=== PATIENT | female | born 1985 | race Hispanic/Latino ===

== ENCOUNTER 2017-12-10 22:03 | Emergency (ER) | payer OTHER, MEDICAID ==
[2017-12-10] MEDS: NORCO 5/325MG TABLET (BULK FOR ED) PO (22:37)
[2017-12-10] MEDS: AUGMENTIN 500 MG TAB PO (22:48)
== END 2017-12-10 22:50 | disposition home or self-care (01) ==
LOC: M ED 22:03
DX: K01.1 Impacted teeth (principal); K08.89 Other specified disorders of teeth and supporting structures; F17.200 Nicotine dependence, unspecified, uncomplicated
CPT/HCPCS: 99282

== ENCOUNTER 2017-12-12 20:10 | Emergency (ER) | payer OTHER | END 2017-12-13 00:16 | disposition left against medical advice (07) | LOC: M ED 20:10 | DX: R11.2 Nausea with vomiting, unspecified (principal); R19.7 Diarrhea, unspecified; Z53.21 Procedure and treatment not carried out due to patient leaving prior to being seen by health care provider ==

== ENCOUNTER 2018-07-02 09:46 | Emergency (ER) | payer OTHER ==
[2018-07-02] MEDS: ONDANSETRON 4 MG ORAL DISINTEGRATING TAB (Q0162 PER 1MG) PO (10:36)
[2018-07-02] MEDS: NORCO, ANEXSIA 5/325MG TABLET (HYDROcodone/ACETAMINOPHEN) PO (10:49)
== END 2018-07-02 12:41 | disposition home or self-care (01) ==
LOC: M ED 09:46
DX: S50.02XA Contusion of left elbow, initial encounter (principal); W10.8XXA Fall (on) (from) other stairs and steps, initial encounter; Y92.89 Other specified places as the place of occurrence of the external cause; R51 Headache; R11.0 Nausea; F41.9 Anxiety disorder, unspecified; F17.200 Nicotine dependence, unspecified, uncomplicated
CPT/HCPCS: Q0162

== ENCOUNTER 2018-07-05 09:04 | Emergency (ER) | payer OTHER | END 2018-07-05 09:42 | disposition home or self-care (01) | LOC: M ED 09:04 | DX: S50.02XA Contusion of left elbow, initial encounter (principal); W01.0XXA Fall on same level from slipping, tripping and stumbling without subsequent striking against object, initial encounter; Y92.89 Other specified places as the place of occurrence of the external cause; Y99.0 Civilian activity done for income or pay; F17.210 Nicotine dependence, cigarettes, uncomplicated | CPT/HCPCS: 99282 ==

== ENCOUNTER → 2018-07-26 | Outpatient (REF) | payer OTHER ==
[2018-07-26 18:27] LABS: ALBUMIN 3.8 GM/DL (3.2-5.2); ALBUMIN/GLOBULIN RATIO 1.12 (1.00-1.93); ALKALINE PHOSPHATASE 77 U/L (45-117); ALT/SGPT 21 U/L (12-78); AST/SGOT 14 U/L (7-37); BILIRUBIN,DIRECT < 0.1 MG/DL (0.0-0.2); BILIRUBIN,TOTAL 0.4 MG/DL (0.2-1.0); TOTAL PROTEIN 7.2 GM/DL (6.4-8.2)
[2018-07-26 18:34] LABS: TOTAL 25(OH) VITAMIN D 20.8 NG/ML (30.0-100.0)
== END ==
LOC: M SFHCPLAZ 14:18
DX: B35.1 Tinea unguium (principal)
CPT/HCPCS: 80076

== ENCOUNTER → 2018-09-27 | Outpatient (REF) | payer OTHER ==
[~2018-09-27] MED LIST: ADVIL PM PO; AUGM500T34 PO; IBUP-1114 PO; NORCOTAB PO; ZOFR4TAB14 PO
[2018-09-27 12:14] LABS: ALBUMIN 3.6 GM/DL (3.2-5.2); BILIRUBIN,DIRECT 0.1 MG/DL (0.0-0.2); BILIRUBIN,TOTAL 0.4 MG/DL (0.2-1.0)
== END ==
LOC: M SFHCPLAZ 08:00
PROVIDERS: ATTEND Nurse Practitioner Family
DX: B35.1 Tinea unguium (principal)

== ENCOUNTER → 2018-11-06 | Outpatient (REF) | payer OTHER ==
[2018-11-06 10:57] LABS: ALBUMIN 3.7 GM/DL (3.2-5.2); ALT/SGPT 21 U/L (12-78); BILIRUBIN,TOTAL 0.5 MG/DL (0.2-1.0); BLOOD UREA NITROGEN 10 MG/DL (7-18); CALCIUM LEVEL 8.5 MG/DL (8.5-10.1); CARBON DIOXIDE LEVEL 27 MEQ/L (21-32); CHLORIDE LEVEL 109 MEQ/L (98-107); CHOLESTEROL LEVEL 235 MG/DL (<200); CHOLESTEROL RISK RATIO 5.222 (<5); CREATININE FOR GFR 0.64 MG/DL (0.55-1.30); FREE T4 1.02 NG/DL (0.76-1.46); GLOMERULAR FILTRATION RATE > 60.0 (>60); GLUCOSE, FASTING 94 MG/DL (70-100); HDL CHOLESTEROL 45 MG/DL (>40); LDL CHOLESTEROL 178 MG/DL (<100); NON-HDL-C 190 MG/DL; POTASSIUM SERUM 4.5 MEQ/L (3.5-5.1); SODIUM LEVEL 140 MEQ/L (136-145); TOTAL 25(OH) VITAMIN D 17.2 NG/ML (30.0-100.0); TOTAL PROTEIN 7.2 GM/DL (6.4-8.2); TRIGLYCERIDES LEVEL 60 MG/DL (<150)
== END ==
LOC: M SFHCPLAZ 07:23
PROVIDERS: ATTEND Nurse Practitioner Family
DX: B35.1 Tinea unguium (principal); E66.9 Obesity, unspecified; R73.09 Other abnormal glucose; E78.2 Mixed hyperlipidemia; E55.9 Vitamin D deficiency, unspecified

== ENCOUNTER 2019-03-02 20:49 | Emergency (ER) | payer OTHER ==
[~2019-03-02] VITALS: Ht 167.6 cm; Wt 90.2 kg
[~2019-03-02 20:49] MED LIST changes: +HYDR-3715 PO; -NORCOTAB PO
[2019-03-02] MEDS ORDERED: NS 1,000 ML IV ONE (22:45)
[2019-03-02] MEDS ORDERED: ONDANSETRON 4MG/2ML VIAL (J2405) IV ONE (23:15)
[2019-03-02] MEDS ORDERED: KETOROLAC 30 MG/ML VIAL (J1885) IV ONE (23:15)
[2019-03-03] MEDS ORDERED: KETO10TAB PO (00:16)
[2019-03-03 00:38] VITALS: BP 108/67
== END 2019-03-03 00:40 | disposition home or self-care (01) ==
LOC: M ED 20:49
DX: G43.909 Migraine, unspecified, not intractable, without status migrainosus (principal)
CPT/HCPCS: 96374; 96375; 99284; J1885; J2405

== ENCOUNTER 2020-11-12 07:45 | Emergency (ER) | payer OTHER ==
[~2020-11-12] VITALS: Ht 170.2 cm; Wt 88.7 kg
[~2020-11-12 07:45] MED LIST changes: +KETO10TAB PO
[2020-11-12] MEDS ORDERED: ADVI200T17 PO (07:53)
[2020-11-12 08:53] LABS: HEMATOCRIT 42.2 % (36.0-47.0); HEMOGLOBIN 13.8 g/dl (12.0-15.5); MEAN CORPUSCULAR HEMOGLOBIN 29.8 pg (27.0-33.0); MEAN CORPUSCULAR HGB CONC 32.7 g/dl (32.0-36.5); MEAN CORPUSCULAR VOLUME 91.1 fl (80.0-96.0); PLATELET COUNT, AUTOMATED 296 10^3/uL (150-450); RED BLOOD COUNT 4.63 10^6/uL (4.00-5.40)
[2020-11-12 09:22] LABS: AMPHETAMINES LEVEL URINE NEGATIVE (NEGATIVE); BARBITURATES URINE NEGATIVE (NEGATIVE); BENZODIAZEPINES URINE NEGATIVE (NEGATIVE); CANNABINOIDS URINE NEGATIVE (NEGATIVE); COCAINE METABOLITE URINE NEGATIVE (NEGATIVE); METHADONE URINE NEGATIVE (NEGATIVE); OPIATES URINE NEGATIVE (NEGATIVE); PHENCYCLIDINE URINE NEGATIVE (NEGATIVE)
[2020-11-12 09:29] LABS: HCG, SERUM QUALITATIVE NEGATIVE (NEGATIVE)
[2020-11-12 09:34] LABS: ACETAMINOPHEN LEVEL < 2.0 UG/ML (10.0-30.0); ALBUMIN 3.7 GM/DL (3.2-5.2); ALT/SGPT 15 U/L (12-78); BILIRUBIN,DIRECT 0.1 MG/DL (0.0-0.2); BILIRUBIN,TOTAL 0.5 MG/DL (0.2-1.0); BLOOD UREA NITROGEN 12 MG/DL (7-18); CALCIUM LEVEL 8.7 MG/DL (8.5-10.1); CARBON DIOXIDE LEVEL 25 MEQ/L (21-32); CHLORIDE LEVEL 110 MEQ/L (98-107); CREATININE FOR GFR 0.65 MG/DL (0.55-1.30); ETHYL ALCOHOL (ETHANOL) < 0.003 % (0.000-0.010); GLOMERULAR FILTRATION RATE > 60.0 (>60); GLUCOSE, FASTING 105 MG/DL (70-100); POTASSIUM SERUM 4.1 MEQ/L (3.5-5.1); SALICYLATE LEVEL < 1.7 MG/DL (5.0-30.0); SODIUM LEVEL 140 MEQ/L (136-145); THYROID STIMULATING HORMONE 0.622 uIU/ML (0.358-3.740); TOTAL PROTEIN 7.4 GM/DL (6.4-8.2)
[2020-11-12 16:24] VITALS: BP 135/78
== END 2020-11-12 16:26 | disposition home or self-care (01) ==
LOC: M ED 07:45
DX: F41.9 Anxiety disorder, unspecified (principal); F33.9 Major depressive disorder, recurrent, unspecified

== ENCOUNTER → 2020-12-30 | Outpatient (REF) ==
[~2020-12-30] MED LIST changes: +ADVI200T17 PO
== END ==
LOC: M LAB 07:21
PROVIDERS: ATTEND Nurse Practitioner Adult Health
DX: Z02.89 Encounter for other administrative examinations (principal)

== ENCOUNTER → 2021-08-18 | Outpatient (REF) | LOC: M EMP 10:48 | PROVIDERS: ATTEND Family Medicine | DX: Z20.822 Contact with and (suspected) exposure to COVID-19 (principal) ==

== ENCOUNTER → 2021-08-22 | Outpatient (REF) ==
[2021-08-22 13:14] LABS: RSV AMPLIFICATION NEGATIVE (NEGATIVE)
== END ==
LOC: M EMP 11:23
PROVIDERS: ATTEND Family Medicine
DX: Z20.822 Contact with and (suspected) exposure to COVID-19 (principal)

== ENCOUNTER → 2021-08-30 | Outpatient (CLI) | payer OTHER | LOC: M RAD 13:22 | PROVIDERS: ATTEND Physician Assistant Medical | DX: R05.9 Cough, unspecified (principal) ==

== ENCOUNTER 2021-09-02 17:37 | Emergency (ER) | payer OTHER ==
[~2021-09-02] VITALS: Ht 167.6 cm; Wt 80.0 kg
[2021-09-02] MEDS ORDERED: ALBU8.5H (17:49)
[2021-09-02] MEDS ORDERED: MIRE1IUD IU (17:50)
[2021-09-02 18:48] LABS: BASO # 0.1 10^3/uL (0.0-0.2); BASO % 0.5 % (0.0-1.0); EOS # 0.2 10^3/uL (0.0-0.5); EOS % 0.9 % (0.0-3.0); HEMATOCRIT 40.4 % (36.0-47.0); HEMOGLOBIN 13.5 g/dl (12.0-15.5); LYMPH # 5.5 10^3/uL (1.5-5.0); MEAN CORPUSCULAR HEMOGLOBIN 30.2 pg (27.0-33.0); MEAN CORPUSCULAR HGB CONC 33.4 g/dl (32.0-36.5); MEAN CORPUSCULAR VOLUME 90.4 fl (80.0-96.0); MONO # 1.1 10^3/uL (0.0-0.8); MONO % 5.7 % (2.0-8.0); NEUTROPHILS # 12.6 10^3/uL (1.5-8.5); NEUTROPHILS % 64.4 % (36.0-66.0); PLATELET COUNT, AUTOMATED 284 10^3/uL (150-450); RED BLOOD COUNT 4.47 10^6/uL (4.00-5.40); WHITE BLOOD COUNT 19.5 10^3/uL (4.0-10.0)
[2021-09-02 19:20] LABS: CK-MB VALUE MASS 1.4 NG/ML (<3.6); MB/CK RELATIVE INDEX 1.16 (< OR =4)
[2021-09-02 19:27] LABS: ALBUMIN 3.8 GM/DL (3.2-5.2); ALT/SGPT 24 U/L (12-78); BILIRUBIN,DIRECT 0.1 MG/DL (0.0-0.2); BILIRUBIN,TOTAL 0.5 MG/DL (0.2-1.0); BLOOD UREA NITROGEN 11 MG/DL (7-18); CALCIUM LEVEL 9.3 MG/DL (8.5-10.1); CARBON DIOXIDE LEVEL 25 MEQ/L (21-32); CHLORIDE LEVEL 107 MEQ/L (98-107); CREATININE FOR GFR 0.67 MG/DL (0.55-1.30); FREE T4 1.26 NG/DL (0.76-1.46); GLOMERULAR FILTRATION RATE > 60.0 (>60); GLUCOSE, FASTING 96 MG/DL (70-100); LIPASE 109 U/L (73-393); MAGNESIUM LEVEL 2.2 MG/DL (1.8-2.4); PHOSPHORUS LEVEL 2.5 MG/DL (2.5-4.9); POTASSIUM SERUM 3.5 MEQ/L (3.5-5.1); SODIUM LEVEL 137 MEQ/L (136-145); THYROID STIMULATING HORMONE 0.916 uIU/ML (0.358-3.740); TOTAL PROTEIN 7.5 GM/DL (6.4-8.2)
[2021-09-02 20:30] VITALS: BP 112/68
[2021-09-08] MEDS ORDERED: DOXY-350 PO (03:32)
[2021-09-08] MEDS ORDERED: AZIT500T5 PO (03:32)
== END 2021-09-02 21:20 | disposition home or self-care (01) ==
LOC: M ED 17:37
DX: R00.2 Palpitations (principal); R94.01 Abnormal electroencephalogram [EEG]; F41.9 Anxiety disorder, unspecified; F17.200 Nicotine dependence, unspecified, uncomplicated

== ENCOUNTER → 2021-09-29 | Outpatient (CLI) | payer OTHER ==
[~2021-09-29] MED LIST changes: +ALBU8.5H; +AZIT500T5 PO; +DOXY-350 PO; +MIRE1IUD IU
== END ==
LOC: M RAD 09:22
PROVIDERS: ATTEND Family Medicine
DX: J18.9 Pneumonia, unspecified organism (principal)

== ENCOUNTER → 2022-03-22 | Outpatient (CLI) | payer OTHER ==
[2022-03-22 10:50] LABS: MEAN CORPUSCULAR HEMOGLOBIN 30.5 pg (27.0-33.0); MEAN CORPUSCULAR HGB CONC 32.6 g/dl (32.0-36.5); MEAN CORPUSCULAR VOLUME 93.7 fl (80.0-96.0); PLATELET COUNT, AUTOMATED 296 10^3/uL (150-450); RED BLOOD COUNT 4.59 10^6/uL (4.00-5.40); WHITE BLOOD COUNT 11.1 10^3/uL (4.0-10.0)
[2022-03-22 13:27] LABS: ALBUMIN 3.4 GM/DL (3.2-5.2); ALT/SGPT 21 U/L (12-78); BILIRUBIN,TOTAL 0.7 MG/DL (0.2-1.0); BLOOD UREA NITROGEN 9 MG/DL (7-18); CALCIUM LEVEL 8.9 MG/DL (8.5-10.1); CARBON DIOXIDE LEVEL 27 MEQ/L (21-32); CHLORIDE LEVEL 106 MEQ/L (98-107); CHOLESTEROL LEVEL 196 MG/DL (<200); CHOLESTEROL RISK RATIO 4.666 (<5); CREATININE FOR GFR 0.69 MG/DL (0.55-1.30); GLOMERULAR FILTRATION RATE > 60.0 (>60); GLUCOSE, FASTING 87 MG/DL (70-100); HDL CHOLESTEROL 42 MG/DL (>40); LDL CHOLESTEROL 143 MG/DL (<100); NON-HDL-C 154 MG/DL; POTASSIUM SERUM 4.4 MEQ/L (3.5-5.1); SODIUM LEVEL 139 MEQ/L (136-145); THYROID STIMULATING HORMONE 0.659 uIU/ML (0.358-3.740); TOTAL PROTEIN 7.6 GM/DL (6.4-8.2); TRIGLYCERIDES LEVEL 53 MG/DL (<150)
== END ==
LOC: M PLALAB 07:14
PROVIDERS: ATTEND Family Medicine
DX: Z79.899 Other long term (current) drug therapy (principal)

== ENCOUNTER → 2022-12-15 | Outpatient (CLI) | payer OTHER ==
[~2022-12-15] MED LIST changes: -DOXY-350 PO; +DOXY-444 PO
[2022-12-15 10:59] LABS: ALBUMIN 3.5 G/DL (3.2-5.2); ALKALINE PHOSPHATASE 85 U/L (46-116); ALT/SGPT 17 U/L (7.0-40); AST/SGOT 17 U/L (<34); BILIRUBIN,TOTAL 0.5 MG/DL (0.3-1.2); BLOOD UREA NITROGEN 11 MG/DL (9-23); CALCIUM LEVEL 8.8 MG/DL (8.5-10.1); CARBON DIOXIDE LEVEL 28 MMOL/L (20-31); CHLORIDE LEVEL 106 MMOL/L (98-107); CREATININE FOR GFR 0.62 MG/DL (0.55-1.30); GLOMERULAR FILTRATION RATE > 60.0 (>60); GLUCOSE, FASTING 89 MG/DL (60-100); POTASSIUM SERUM 4.5 MMOL/L (3.5-5.1); SODIUM LEVEL 139 MMOL/L (136-145); TOTAL PROTEIN 6.7 G/DL (5.7-8.2)
== END ==
LOC: M PLALAB 08:20
PROVIDERS: ATTEND Family Medicine
DX: Z79.899 Other long term (current) drug therapy (principal)

== ENCOUNTER → 2023-07-25 | Outpatient (CLI) | payer OTHER ==
[2023-07-25 10:15] LABS: BASO # 0.1 10^3/uL (0.0-0.2); BASO % 0.8 % (0.0-1.0); EOS # 0.6 10^3/uL (0.0-0.5); EOS % 6.4 % (0.0-3.0); HEMATOCRIT 40.4 % (36.0-47.0); HEMOGLOBIN 13.4 g/dl (12.0-15.5); LYMPH # 3.9 10^3/uL (1.5-5.0); MEAN CORPUSCULAR HEMOGLOBIN 30.9 pg (27.0-33.0); MEAN CORPUSCULAR HGB CONC 33.2 g/dl (32.0-36.5); MEAN CORPUSCULAR VOLUME 93.3 fl (80.0-96.0); MONO # 0.8 10^3/uL (0.0-0.8); MONO % 7.9 % (2.0-8.0); NEUTROPHILS # 4.3 10^3/uL (1.5-8.5); NEUTROPHILS % 44.6 % (36.0-66.0); PLATELET COUNT, AUTOMATED 286 10^3/uL (150-450); RED BLOOD COUNT 4.33 10^6/uL (4.00-5.40); WHITE BLOOD COUNT 9.7 10^3/uL (4.0-10.0)
[2023-07-25 10:39] LABS: VALPROIC ACID (DEPAKOTE) 5.1 UG/ML (50.0-100.0)
[2023-07-25 10:42] LABS: ALBUMIN 3.5 G/DL (3.2-5.2); ALKALINE PHOSPHATASE 66 U/L (46-116); ALT/SGPT 12 U/L (7.0-40); AST/SGOT 14 U/L (<34); BILIRUBIN,TOTAL 0.6 MG/DL (0.3-1.2); BLOOD UREA NITROGEN 7 MG/DL (9-23); CALCIUM LEVEL 8.8 MG/DL (8.5-10.1); CARBON DIOXIDE LEVEL 26 MMOL/L (20-31); CHLORIDE LEVEL 108 MMOL/L (98-107); CREATININE FOR GFR 0.59 MG/DL (0.55-1.30); GLOMERULAR FILTRATION RATE > 60.0 (>60); GLUCOSE, FASTING 85 MG/DL (60-100); POTASSIUM SERUM 4.7 MMOL/L (3.5-5.1); SODIUM LEVEL 141 MMOL/L (136-145); TOTAL PROTEIN 6.5 G/DL (5.7-8.2)
== END ==
LOC: M PLALAB 08:21
PROVIDERS: ATTEND Family Medicine
DX: Z79.899 Other long term (current) drug therapy (principal)

== ENCOUNTER → 2025-03-10 | Outpatient (CLI) | payer OTHER ==
[~2025-03-10] MED LIST changes: +DOXY-440 PO; -DOXY-444 PO
[2025-03-10 10:43] LABS: BASO # 0.1 10^3/uL (0.0-0.2); BASO % 0.6 % (0.0-1.0); EOS # 0.4 10^3/uL (0.0-0.5); EOS % 2.5 % (0.0-3.0); LYMPH # 3.9 10^3/uL (1.5-5.0); LYMPH % 27.2 % (24.0-44.0); MONO # 1.1 10^3/uL (0.0-0.8); MONO % 7.6 % (2.0-8.0); NEUTROPHILS # 8.7 10^3/uL (1.5-8.5); NEUTROPHILS % 61.7 % (36.0-66.0); PLATELET COUNT, AUTOMATED 299 10^3/uL (150-450)
[2025-03-10 11:10] LABS: VALPROIC ACID (DEPAKOTE) 8.3 UG/ML (50.0-100.0)
[2025-03-10 11:16] LABS: ALT/SGPT 12 U/L (7.0-40); AST/SGOT 16 U/L (<34); CALCIUM LEVEL 9.2 MG/DL (8.5-10.1); CARBON DIOXIDE LEVEL 26 MMOL/L (20-31); CHLORIDE LEVEL 104 MMOL/L (98-107); CHOLESTEROL LEVEL 308 MG/DL (<200); CHOLESTEROL RISK RATIO 6.93 (<5); CREATININE FOR GFR 0.69 MG/DL (0.55-1.30); GLOMERULAR FILTRATION RATE > 90.0 (>58); LDL CHOLESTEROL 237.8 MG/DL (<100); NON-HDL-C 263.6 MG/DL; POTASSIUM SERUM 4.7 MMOL/L (3.5-5.1); SODIUM LEVEL 140 MMOL/L (136-145); TRIGLYCERIDES LEVEL 129 MG/DL (<150)
== END ==
LOC: M PLALAB 07:02
PROVIDERS: ATTEND Family Medicine
DX: Z79.899 Other long term (current) drug therapy (principal)

== ENCOUNTER → 2025-03-31 | Outpatient (CLI) | payer OTHER | LOC: M PLALAB 07:23 | PROVIDERS: ATTEND Family Medicine | DX: E07.9 Disorder of thyroid, unspecified (principal) ==